=== PATIENT | female | born 1965 | race Two or more races ===

== ENCOUNTER 2019-02-01 22:13 | Emergency (ER) | payer MEDICAID ==
[~2019-02-01] VITALS: Ht 160 cm; Wt 76.3 kg
[2019-02-02 00:18] LABS: BASOPHIL % 0.1 % (0-2); PLATELET COUNT 267 x10^3mcL (130-400); RED CELL DISTRIBUTION WIDTH 13.3 % (11.5-14.5)
[2019-02-02 00:21] LABS: CALCIUM 8.2 mg/dL (8.5-10.1); CARBON DIOXIDE 24.4 mmol/L (21-32); CHLORIDE SERUM 107 mmol/L (98-107); CREATININE SERUM 0.8 mg/dL (0.6-1.0); GFR1 > 60 mL/min; GLUCOSE SERUM 127 mg/dL (74-106); POTASSIUM SERUM 3.7 mmol/L (3.5-5.1); SODIUM SERUM 140 mmol/L (136-145)
[2019-02-02 00:25] LABS: ALKALINE PHOSPHATASE 105 U/L (46-116); ALT/SGPT 22 U/L (14-59); AST/SGOT 16 U/L (15-37); BILIRUBIN TOTAL 0.3 mg/dL (0.20-1.00); TOTAL PROTEIN, SERUM 7.3 g/dL (6.4-8.2)
[2019-02-02 00:26] LABS: ALBUMIN 3.2 g/dL (3.4-5.0)
[2019-02-02 03:54] VITALS: BP 160/83
== END 2019-02-02 04:04 | disposition home or self-care (01) ==
LOC: ED 22:13
PROVIDERS: Emergency Medicine
DX: J20.9 Acute bronchitis, unspecified (principal); F17.210 Nicotine dependence, cigarettes, uncomplicated
CPT/HCPCS: J0696; J1885; J7060; J7620; Q9967

== ENCOUNTER 2019-02-09 12:38 | Emergency (ER) | payer MEDICAID ==
[~2019-02-09] VITALS: Ht 152.4 cm; Wt 74.8 kg
[2019-02-09 12:51] VITALS: BP 146/84; Ht 152.4 cm; Wt 74.8 kg
== END 2019-02-09 13:43 | disposition home or self-care (01) ==
LOC: ED 12:38
DX: J20.9 Acute bronchitis, unspecified (principal)